=== PATIENT | male | born 1985 | race Caucasian/White ===

== ENCOUNTER 2018-07-23 13:34 | Observation (INO) ==
--- NOTE | 2018-07-23 14:03 | Emergency Department Note ---
Disposition Clinical Impression: Esophageal pain Abdominal pain Qualifiers: Abdominal location: unspecified location Qualified Code(s): R10.9 - Unspecified abdominal pain Nausea and vomiting Qualifiers: Vomiting type: unspecified Vomiting Intractability: intractable Qualified Code( s): R11.2 - Nausea with vomiting, unspecified Disposition: Admitted As Inpatient Condition: Fair [facility]: [facility]Primary Care Provider[facility] - Forms: ED Satisfaction Letter, Work/School Release Time of Disposition: 17:32 Abdominal Pain HPI - General Chief Complaint: ED Abdominal Pain Stated Complaint: abd pain,vomiting Time Seen by Provider: 07/23/18 13:41 Source: patient Mode of arrival: ambulatory Limitations: no limitations Nursing Notes Reviewed: Yes Vital Signs Reviewed: Yes - History of Present Illness HPI Narrative: Patient is a 32-year-old male with past medical history of chronic abdominal pain since 2006, chronic nausea and vomiting. He is currently being followed by GI specialist Dr. Bernstein. He does have a history of varices, acid reflux, takes Phenergan at home and GERD medication. He had a manometer place in his esophagus yesterday by Dr. Bernstein. He stated that after that procedure, he had some mild discomfort but states that it was similar to previous endoscopies discomfort. However, throughout the day, he had worsening pain. He now has pain when he swallows, constant pain in his chest and epigastric region. He states that his epigastric pain is worse than his usual baseline. He also admits to an episode of bloody emesis. Denies any other fevers, shortness breath, dysuria, hematuria, rectal bleeding. He was seen yesterday in the ER for the same issue. He is given Dilaudid, Phenergan and told to follow-up with Dr. Bernstein. He states that he called the office today and was referred here to the ER for further evaluation. Pain Scale: 3 - Related Data Home Medications Medication Instructions Recorded Confirmed LORazepam [Ativan] 1 mg PO TID PRN 11/19/17 07/23/18 Promethazine [Phenergan] 25 mg PO Q6HR PRN 11/19/17 07/23/18 Zaleplon [Sonata] 10 mg PO HS 11/19/17 07/23/18 Pantoprazole Sodium [Protonix] 40 mg PO BID 07/23/18 07/23/18 Prazosin HCl [Minipress] 2 mg PO HS 07/23/18 07/23/18 Allergies Allergy/AdvReac Type Severity Reaction Status Date / Time ketorolac [From Toradol] Allergy Rash Verified 07/23/18 14:15 Methadone Allergy See Verified 11/19/17 10:58 Comments morphine Allergy See Verified 11/19/17 10:58 Comments ondansetron Allergy Migraine Verified 11/19/17 10:58 [From Zofran (as hydrochloride)] tramadol Allergy See Verified 11/19/17 10:58 Comments NSAIDS (Non-Steroidal AdvReac Nausea Verified 07/23/18 14:15 Anti-Inflamma propofol AdvReac Difficulty Verified 07/23/18 14:15 Breathing All systems ED: reviewed and negative except as stated. Constitutional: Denies: fever Cardiovascular: Reports: chest pain (esophageal pain) Respiratory: Denies: dyspnea Gastrointestinal: Reports: abdominal pain, nausea, vomiting, hematemesis. Denies: diarrhea, constipation, melena, hematochezia Neurological: Denies: headache, weakness, numbness Abdominal Pain PMH - Past Medical History Medical history: Reports: GERD Psychiatric history: Reports: anxiety, PTSD - Social History Smoking status: Current every day smoker Alcohol use: Reports: none Drug use: Reports: none Physical Exam - General Limitations: no limitations General appearance: alert, in no apparent distress - Head Head exam: atraumatic, normocephalic, normal inspection - Eye Eye exam: Present: normal appearance, PERRL, EOMI - ENT ENT exam: normal exam, normal oropharynx, mucous membranes moist - Neck Neck exam: Present: normal inspection, full ROM, trachea midline - Chest Chest inspection: Present: normal inspection, symmetric chest wall rise. Absent : tenderness, rash - Respiratory Respiratory exam: Present: normal lung sounds bilaterally - Cardiovascular Cardiovascular exam: Present: regular rate, normal rhythm, normal heart sounds - Abdominal Exam Abdominal exam: Present: soft, tenderness (epigastric - moderate). Absent: distention, guarding, rebound, rigidity, Harris's sign, tenderness at McBurney' s Point - Extremities Exam Extremities exam: Present: normal inspection, full ROM. Absent: tenderness, pedal edema - Neurological Exam Neurological exam: Present: alert, oriented X3 - Psychiatric Psychiatric exam: Present: normal affect, normal mood - Skin Skin exam: Present: warm, dry, intact, normal color Course Course Narrative: Patient mildly hypertensive. Otherwise, the rest of vitals within normal limits. Physical exam shows epigastric discomfort, moderate. Otherwise negative Harris's and negative McBurney's. He also has subjective pain under his lower sternum that he describes as "esophageal pain, aching. "Due to complaint of hematemesis with history of varices, we will obtain CBC. We will likely have to perform CTA of the chest, abdomen and pelvis. We will check BMP for creatinine. Will talk with Dr. Bernstein to discuss imaging before ordering and to get any further recs. 14:59 spoke with GI specialist, he recommended that we do CT of the chest, give GI cocktail. If no concerning findings, he recommends that the patient follows up with the office on Thursday. No other intervention or test recommended at this time. CBC and BMP pending. He did not feel that CT of abdomen and pelvis was necessary at this time due to the chronicity of the pain and current concern for esophageal injury. 17:25 chest CTA negative for any esophageal injury. There was some calcifications that are chronic for the patient. Patient was reassessed. He is still having significant pain. He requested that his manometer be removed by GI specialist. I talked with GI specialist Dr. Bernstein, discuss imaging and continued pain. He stated that risk for high due to the patient having varices , risk outweigh benefits at this time for removal. He stated that the device will naturally follow off into the GI tract within the next 1-2 days. Patient was not comfortable with this plan. He had some relief with the GI cocktail that did not want to go home with any this was lidocaine. I discussed with GI specialist that patient may need to be admitted for intractable pain if the device was not going to be removed. Patient has requested admission at this time. Chest CT 07/23/18 14:57 IMPRESSION: 1. No acute abnormalities seen in the chest 2. The esophagus appears to be intact 3. Ground-glass infiltrates seen in the lower lobes. These could be related to an atypical pneumonia. These also may be related to a previous infectious or inflammatory process. D/ / Mahad Goldberg MD / Mahad Goldberg MD Interpreting Provider: Mahad Goldberg MD Vital Signs Temperature 98.2 F 07/23/18 13:36 Pulse Rate 90 07/23/18 13:36 Respiratory Rate 18 07/23/18 13:36 Blood Pressure 142/81 07/23/18 13:36 O2 Sat by Pulse Oximetry 98 07/23/18 13:36 Temperature 98.2 F 07/23/18 14:10 Pulse Rate 90 07/23/18 14:10 Respiratory Rate 18 07/23/18 14:10 Blood Pressure 142/81 07/23/18 14:10 O2 Sat by Pulse Oximetry 98 07/23/18 14:10 Oxygen Delivery Oxygen Delivery Room Air Abdominal Pain - MDM Narrative Medical decision making narrative: Patient mildly hypertensive. Otherwise, the rest of vitals within normal limits. Physical exam shows epigastric discomfort, moderate. Otherwise negative Harris's and negative McBurney's. He also has subjective pain under his lower sternum that he describes as "esophageal pain, aching. "Due to complaint of hematemesis with history of varices, we will obtain CBC. We will likely have to perform CTA of the chest, abdomen and pelvis. We will check BMP for creatinine. Will talk with Dr. Bernstein to discuss imaging before ordering and to get any further recs. 14:59 spoke with GI specialist, he recommended that we do CT of the chest, give GI cocktail. If no concerning findings, he recommends that the patient follows up with the office on Thursday. No other intervention or test recommended at this time. CBC and BMP pending. He did not feel that CT of abdomen and pelvis was necessary at this time due to the chronicity of the pain and current concern for esophageal injury. 17:25 chest CTA negative for any esophageal injury. There was some calcifications that are chronic for the patient. Patient was reassessed. He is still having significant pain. He requested that his manometer be removed by GI specialist. I talked with GI specialist Dr. Bernstein, discuss imaging and continued pain. He stated that risk for high due to the patient having varices , risk outweigh benefits at this time for removal. He stated that the device will naturally follow off into the GI tract within the next 1-2 days. Patient was not comfortable with this plan. He had some relief with the GI cocktail that did not want to go home with any this was lidocaine. I discussed with GI specialist that patient may need to be admitted for intractable pain if the device was not going to be removed. Patient has requested admission at this time. - Medical Records Medical records reviewed: Yes I reviewed the patient's medical records. - Lab Data Lab results reviewed: Yes I reviewed the patient's lab results. Result diagrams: 07/23/18 14:20 07/23/18 14:20 Lab Results 07/23/18 07/23/18 07/23/18 Range/Units 14:20 14:20 14:30 WBC 10.9 (4.3-11.1) K/mcL RBC 5.12 (4.19-5.50) M/mcL Hgb 15.5 (12.9-16.9) g/dL Hct 45.1 (37.5-50.1) % MCV 88.1 (83.0-100.0) fL MCH 30.3 (28.0-33.3) pg MCHC 34.4 (31.6-35.5) g/dL RDW 12.3 (11.5-14.5) % Plt Count 250 (140-400) K/mcL MPV 9.8 (9.4-12.4) fL Immature Gran % 0.6 (0-4) % Seg Neutrophils % 69.8 % Lymphocytes % 21.2 % Monocytes % 7.3 % Eosinophils % 0.6 % Basophils % 0.5 % Neutrophils # 7.6 (1.6-8.9) K/mcL Lymphocytes # 2.3 (0.6-4.6) K/mcL Monocytes # 0.8 (0.0-1.3) K/mcL Eosinophils # 0.1 (0.0-0.6) K/mcL Basophils # 0.1 (0.0-0.2) K/mcL Sodium 139 (136-145) mEq/L Potassium 3.9 (3.5-5.1) mEq/L Chloride 105 (98-107) mEq/L Carbon Dioxide 28 (23-29) mEq/L BUN 12 (6-20) mg/dL Creatinine 0.79 (0.70-1.30) mg/dL Est GFR ( Amer) > 60 (> 60) Est GFR (Non-Af Amer) > 60 (> 60) BUN/Creatinine Ratio 15 (6-26) Glucose 101 (70-105) mg/dL Calculated Osmolality 288 (280-300) Calcium 9.5 (8.6-10.3) mg/dL Urine Color (Yellow) Urine Clarity (Clear) Urine pH (5.0-8.0) pH Units Ur Specific Rochelle (1.010-1.025) Urine Protein (Neg-Trace) mg/dL Urine Glucose (UA) (Normal) mg/dL Urine Ketones (Negative) mg/dL Urine Blood (Negative) Urine Nitrite (Negative) Urine Bilirubin (Negative) Urine Urobilinogen (Normal) mg/dL Ur Leukocyte Esterase (Negative) Ur Culture Indicated? (NO) Urine Opiates Screen Negative (Ztrenp=637) ng/mL Ur Barbiturates Screen Negative (Rehzai=738) ng/mL Ur Phencyclidine Scrn Negative (Cutoff=25) ng/mL Ur Amphetamines Screen Negative (Hkbpfd=8301) ng/mL U Benzodiazepines Scrn Positive H (Cyblwr=478) ng/mL Urine Cocaine Screen Negative (Cutoff= 300) ng/mL U Marijuana (THC) Screen Negative (Cutoff = 50) ng/mL Ur Drug Screen Interp See Below 07/23/18 Range/Units 14:30 WBC (4.3-11.1) K/mcL RBC (4.19-5.50) M/mcL Hgb (12.9-16.9) g/dL Hct (37.5-50.1) % MCV (83.0-100.0) fL MCH (28.0-33.3) pg MCHC (31.6-35.5) g/dL RDW (11.5-14.5) % Plt Count (140-400) K/mcL MPV (9.4-12.4) fL Immature Gran % (0-4) % Seg Neutrophils % % Lymphocytes % % Monocytes % % Eosinophils % % Basophils % % Neutrophils # (1.6-8.9) K/mcL Lymphocytes # (0.6-4.6) K/mcL Monocytes # (0.0-1.3) K/mcL Eosinophils # (0.0-0.6) K/mcL Basophils # (0.0-0.2) K/mcL Sodium (136-145) mEq/L Potassium (3.5-5.1) mEq/L Chloride (98-107) mEq/L Carbon Dioxide (23-29) mEq/L BUN (6-20) mg/dL Creatinine (0.70-1.30) mg/dL Est GFR ( Amer) (> 60) Est GFR (Non-Af Amer) (> 60) BUN/Creatinine Ratio (6-26) Glucose (70-105) mg/dL Calculated Osmolality (280-300) Calcium (8.6-10.3) mg/dL Urine Color Yellow (Yellow) Urine Clarity Clear (Clear) Urine pH 8.0 (5.0-8.0) pH Units Ur Specific Roc[place]le 1.017 (1.010-1.025) Urine Protein Negative (Neg-Trace) mg/dL Urine Glucose (UA) Normal (Normal) mg/dL Urine Ketones Negative (Negative) mg/dL Urine Blood Negative (Negative) Urine Nitrite Negative (Negative) Urine Bilirubin Negative (Negative) Urine Urobilinogen Normal (Normal) mg/dL Ur Leukocyte Esterase Negative (Negative) Ur Culture Indicated? NO (NO) Urine Opiates Screen (Vjyztz=114) ng/mL Ur Barbiturates Screen (Pkhvkw=636) ng/mL Ur Phencyclidine Scrn (Cutoff=25) ng/mL Ur Amphetamines Screen (Wddiws=6175) ng/mL U Benzodiazepines Scrn (Bbhdru=485) ng/mL Urine Cocaine Screen (Cutoff= 300) ng/mL U Marijuana (THC) Screen (Cutoff = 50) ng/mL Ur Drug Screen Interp - Radiology Data Radiology results reviewed: Yes I reviewed the patient's radiology results. Chest CT 07/23/18 14:57 IMPRESSION: 1. No acute abnormalities seen in the chest 2. The esophagus appears to be intact 3. Ground-glass infiltrates seen in the lower lobes. These could be related to an atypical pneumonia. These also may be related to a previous infectious or inflammatory process. D/ / Mahad Goldberg MD / Mahad Goldberg MD Interpreting Provider: Mahad Goldberg MD S[facility]R. - S.B[facility] Situation: Demographics, MOA Background: Presenting Complaint, Relevant PMH, Meds, & Allergies Assessment: Vital Signs, Course and respsone to treatment, Exam Concerns, Patient/Family Expectation, Pertinant Lab Results Recommendation: Barrier(s) to disposition, Recommendation based on pending studies, treatments, or consults Noemi Report Given to: Dr. Shayna Franklin Repor Time: 17:32 Attestation Statement - Attestation Attestation: This documentation is done with the assistance of Dragon dictation. Despite efforts made to ensure accuracy, there may be inaccuracies in glass technician/installer or spelling and typographical errors. I examined this patient and my medical decision-making was reviewed with the Resident Physician. I agree with the documented findings, disposition and treatment plan as described except to the extent set forth below. Patient seen and evaluated by Dr. Spivey and myself I agree with his evaluation treatment plan , I supervised the care of the patient's stay. Patient was seen last evening for abdominal pain and nausea. He had a probable device placed recently by GI here. Major his pH. He still having discomfort. They called the GI office today 25 and be seen. Nonsurgical abdomen here. Receiving make him feel better from a page GI and the consider imaging.
[2018-07-23] MEDS ORDERED: *HR* FentaNYL (PF) 100 MCG/2 ML VIAL IVP ONE ×2 (14:16→17:32)
[2018-07-23] MEDS ORDERED: *HR* Promethazine 25 MG/ML VIAL IVP ONE (14:16)
[2018-07-23 14:36] LABS: Basophils # 0.1 K/mcL (0.0-0.2); Basophils % 0.5 %; Eosinophils # 0.1 K/mcL (0.0-0.6); Eosinophils % 0.6 %; Hematocrit 45.1 % (37.5-50.1); Hemoglobin 15.5 g/dL (12.9-16.9); Immature Granulocytes % 0.6 % (0-4); Lymphocytes # 2.3 K/mcL (0.6-4.6); Lymphocytes % 21.2 %; Mean Corpuscular HGB Conc 34.4 g/dL (31.6-35.5); Mean Corpuscular Hemoglobin 30.3 pg (28.0-33.3); Mean Corpuscular Volume 88.1 fL (83.0-100.0); Mean Platelet Volume 9.8 fL (9.4-12.4); Monocytes # 0.8 K/mcL (0.0-1.3); Monocytes % 7.3 %; Neutrophils # 7.6 K/mcL (1.6-8.9); Platelet Count 250 K/mcL (140-400); Red Blood Count 5.12 M/mcL (4.19-5.50); Red Cell Distribution Width 12.3 % (11.5-14.5); Segmented Neutrophils % 69.8 %
[2018-07-23 14:54] LABS: Amphetamine Screen,Urine Negative ng/mL (Cutoff=1000); Barbiturate Screen,Urine Negative ng/mL (Cutoff=200); Benzodiazepines Screen,Urine Positive ng/mL (Cutoff=200); Cannabinoid Screen,Urine Negative ng/mL (Cutoff = 50); Cocaine Screen,Urine Negative ng/mL (Cutoff= 300); Opiate Screen,Urine Negative ng/mL (Cutoff=300); Phencyclidine Screen,Urine Negative ng/mL (Cutoff=25)
[2018-07-23] MEDS ORDERED: GI Cocktail 40 ML EACH PO ONE ×2 (14:54→21:00)
[2018-07-23 14:55] LABS: BUN/Creatinine Ratio 15 (6-26); Blood Urea Nitrogen 12 mg/dL (6-20); Calcium 9.5 mg/dL (8.6-10.3); Carbon Dioxide 28 mEq/L (23-29); Chloride 105 mEq/L (98-107); Glucose 101 mg/dL (70-105); Osmolality,Calculated 288 (280-300); Potassium 3.9 mEq/L (3.5-5.1); Sodium 139 mEq/L (136-145); eGFR For Non-African Americans > 60 (> 60)
[2018-07-23 15:08] LABS: Bilirubin,Urine Negative (Negative); Blood,Urine Negative (Negative); Clarity,Urine Clear (Clear); Color,Urine Yellow (Yellow); Glucose,Urine (UA) Normal (Normal); Ketones,Urine Negative (Negative); Leukocyte Esterase,Urine Negative (Negative); Nitrite,Urine Negative (Negative); Protein,Urine Negative (Neg-Trace); Specific Gravity,Urine 1.017 (1.010-1.025); Urobilinogen,Urine Normal (Normal)
[2018-07-23] MEDS ORDERED: Isovue-370 500 ML INFUS..BTL PO ONE (16:14)
[2018-07-23] MEDS ORDERED: Naloxone 0.4 MG/ML INJ IVP PRN ×2 (17:53)
[2018-07-23] MEDS ORDERED: Acetaminophen 325 MG TABLET PO PRN (17:53)
[2018-07-23] MEDS ORDERED: *HR* Promethazine 25 MG/ML VIAL IVP PRN (17:53)
[2018-07-23 18:21] LABS: Lipase 8 Units/L (11-82)
--- NOTE | 2018-07-23 18:29 | Internal Med History&Physical ---
<Laura Heaton - Last Filed: 07/23/18 18:26> Date of Encounter: 07/23/18 Time of Encounter: 18:26 Internal Medicine - H&P: HPI Chief complaint: Vomiting with epigastric pain Admitted From: Home Plans for Post Hospital Care: Home History of present illness: Mr. Alexandra is a 32 year old male with past medical history of PTSD, esophageal varices, bleeding ulcer, and right leg neuropathy and traumatic brain injury. He presented to the ED complaining of acute vomiting and abdominal pain. He is unsure why he has esophageal varices and stated he does not drink and his last drink was about 6 months ago. He is a current smoker and smoker and spokes 1 pack of cigarette per day for the past 15 years. He does have family history of colon cancer in his mom with crohn disease onset in her late 40s. He stated he started having abdominal pain yesterday evening and it was associated with vomiting. He had a monometer pH reader placed yesterday and noted to have localized epigastric pain radiating to the abdomen last night. He presented to the ED yesterday with similar complaints but stated after received something for pain he felt better. This evening he is presenting with subjective history of emesis 6 times in the past 24 hours which is described as bilious with some blood but he is unable to quantify how much blood. It is described as a sharp pain 10/10 in his epigastric region. Nothing makes the abdominal pain or the emesis better. Since his presentation in the ED he has had no episodes of emesis. His vitals have remained stable, blood pressure 142/81 to 123/83. His labs are also stable , with potassium of 3.9 and sodium at 139. His hemoglobin is 15.5 and white count is within normal limits at 10.9. He had a CT of the chest in the ED to rule out any esophageal tear and there was no evidence of that. He appears very comfortable in bed. He denies fever, chills, cough, shortness of breath or chest pain. He is asking for more phenergen and more pain medication which seems inappropriate given he has received them recently before my exam. Upon physical exam he appears comfortable and exam, no cysnosis or lesions noted on his abdomen, mucosa was moist was only pertinent for midepigastric tenderness. Abdomen was soft, with no guarding or rigidity. Past Med Surg Social Fam HX - Past Medical History Medical history: GERD Additional medical history: bleeding ulcers, gastric polyps, ptsd, sciatic nerve paralysis Psychiatric history: anxiety, PTSD - Past Surgical History Surgical History: appendectomy, cholecystectomy Additional surgical history: neurostimulator implant - EGD, tejada procdure - Social History Smoking Status: Current every day smoker Smokeless Tobacco Status: No Alcohol use: none Drug use: none - Family History Maternal Adopted: No Living Status: Unknown Hx Family GI Disorders: Yes (History of crohn and colon cancer per patient) Internal Medicine - H&P: Meds LORazepam [Ativan] 1 mg PO TID PRN 11/19/17 [History] Promethazine [Phenergan] 25 mg PO Q6HR PRN 11/19/17 [History] Zaleplon [Sonata] 10 mg PO HS 11/19/17 [History] Pantoprazole Sodium [Protonix] 40 mg PO BID 07/23/18 [History] Prazosin HCl [Minipress] 2 mg PO HS 07/23/18 [History] 3 Allergy/AdvReac Type Severity Reaction Status Date / Time ketorolac [From Toradol] Allergy Rash Verified 07/23/18 14:15 Methadone Allergy See Verified 11/19/17 10:58 Comments morphine Allergy See Verified 11/19/17 10:58 Comments ondansetron Allergy Migraine Verified 11/19/17 10:58 [From Zofran (as hydrochloride)] tramadol Allergy See Verified 11/19/17 10:58 Comments NSAIDS (Non-Steroidal AdvReac Nausea Verified 07/23/18 14:15 Anti-Inflamma propofol AdvReac Difficulty Verified 07/23/18 14:15 Breathing All Systems PM: A 10-system review of systems was performed and is negative for pertinent findings except as documented above in the HPI. - Constitutional Constitutional: no chills, no fever(s), no falls, no weight loss - EENT Eyes: no blurry vision, no loss of vision, no pain Nose, mouth and throat: no dysphagia, no hoarseness - Cardiovascular Cardiovascular ROS IM: no chest pain, no dyspnea, no edema, no palpitations - Respiratory Respiratory: no cough, no dyspnea, no wheezing - Gastrointestinal Gastrointestinal: hematemesis (subjective, not visualized in the ED), nausea, vomiting (subjective), no constipation, no diarrhea, no hematochezia - Genitourinary Genitourinary ROS male: no dysuria - Musculoskeletal Musculoskeletal ROS IM: other (history of right leg neuropathy ), no muscle weakness - Neurological Neurological ROS: no frequent falls, no headache(s), no tingling, no weakness - Psychiatric Psychiatric: anxiety, depression, other (PTSD) - Constitutional Vitals: Temp Pulse Resp BP Pulse Ox 98.2 F 77 14 123/83 97 07/23/18 14:10 07/23/18 17:43 07/23/18 17:43 07/23/18 17:43 07/23/18 17:43 General appearance: Present: A&O X 3, no acute distress Exam: Constitutional: Alert, in no acute distress, comfortable HEENT: Normocephalic, atraumatic, moist mucus membrane Heart: Normal, regular rate and rhythm, no murmurs Lungs: lungs clear and equal bilaterally Abdomen: Soft, non distended, tender in epigastric region, no rigidity, no rebound tenderness Extremities: No edema, no clubbing; Skin: Skin warm and dry, no lesions, no rashes, no jaundice Psych: thought content congruent, appropriate affect Neurological Alert and oriented x 3 - Head Head exam: Present: atraumatic - Eye Eye exam: Present: conjunctival injection. Absent: sclera anicteric - Neck Neck exam general surgery: Present: full ROM, trachea midline - Respiratory Respiratory exam: Present: CTAB. Absent: rhonchi, stridor, wheezes - Cardiovascular Cardiovascular exam: Present: RRR, +S1, +S2. Absent: clicks, gallop - GI/Abdominal GI/Abdominal exam: Present: diminished bowel sounds, soft, tenderness ( epigastric region and right upper abdomen). Absent: distended, firm, guarding, rigid - Extremities Exam Extremities exam: Present: warm. Absent: calf tenderness, pedal edema - Psychiatric Psychiatric exam: Present: normal affect, normal mood - Skin Skin exam: Present: dry, intact, warm. Absent: rash - Other Additional findings: appear to have some drug seeking behavior as he is asking for specific pain medications and phenergen Internal Med - H&P Results - Labs CBC & Chem 7: 07/23/18 14:20 07/23/18 14:20 Labs: Short CBC 07/23/18 Range/Units 14:20 WBC 10.9 (4.3-11.1) K/mcL Hgb 15.5 (12.9-16.9) g/dL Hct 45.1 (37.5-50.1) % Plt Count 250 (140-400) K/mcL Neutrophils # 7.6 (1.6-8.9) K/mcL BMP 07/23/18 14:20 Sodium 139 Potassium 3.9 Chloride 105 Carbon Dioxide 28 BUN 12 Creatinine 0.79 Glucose 101 Calcium 9.5 Urine 07/23/18 Range/Units 14:30 Urine Color Yellow (Yellow) Urine Clarity Clear (Clear) Urine pH 8.0 (5.0-8.0) pH Units Ur Specific [place] 1.017 (1.010-1.025) Urine Protein Negative (Neg-Trace) mg/dL Urine Glucose (UA) Normal (Normal) mg/dL - Impressions ITS Impressions Chest CT 07/23/18 14:57 IMPRESSION: 1. No acute abnormalities seen in the chest 2. The esophagus appears to be intact 3. Ground-glass infiltrates seen in the lower lobes. These could be related to an atypical pneumonia. These also may be related to a previous infectious or inflammatory process. D/ / Mahad Goldberg MD / Mahad Goldberg MD Interpreting Provider: Mahad Goldberg MD - Assessment and plan (1) Intractable nausea and vomiting Current Visit: Yes Status: Acute Assessment and plan: Patient stated he has had 6 episodes of emesis since yesterday evening. He describes them as bilious and bloody but unable to quantify the amount of blood. He did not have any emesis witnessed in the ED. Plan: NPO except meds, risk for aspiration Promethazine 25 mg Q8HR KUB pending Hepatic panel pending INR/PT pending CMP in the morning GI consulted by ED Qualifiers: Vomiting type: unspecified Qualified Code(s): R11.2 - Nausea with vomiting , unspecified (2) Epigastric abdominal pain Current Visit: Yes Status: Acute Assessment and plan: Complains of intractable abdominal pain that has been ongoing since yesterday evening. Upon physical exam he appears comfortable, abdomen is soft and non distended. He is tender in the epigastric region. Plan: Pain control with 5 mg oxycodone Q4HR PRN, avoid IV Acetaminophen PRN KUB pending Hepatic panel pending INR/PT pending NPO except meds GI consulted by ED (3) GERD (gastroesophageal reflux disease) Current Visit: Yes Status: Acute Assessment and plan: Per patient he has history of peptic ulcer disease although he had an EGD yesterday which did not visualize any peptic ulcer. He was noted to have a normal appearing stomach as well as duodonem. He may have underlying GERD as he is on home protonix and complains of epigastric pain ongoing for many years Plan: He received GI cocktail in the ED and scheduled for another dose this evening Protonix 40 mg PO Hepatic panel pending INR/PT pending NPO except meds GI consulted by ED Qualifiers: Esophagitis presence: esophagitis presence not specified Qualified Code(s) : K21.9 - Gastro-esophageal reflux disease without esophagitis (4) Esophageal varices Current Visit: Yes Status: Acute Assessment and plan: Grade 1 espophageal varice. He underwent an EGD by Dr. Bernstein yesterday (07/22/18) for a pH manometry to be placed and was noted to have a very small grade 1 varice in the lower third of his esophagus. Plan: Avoid NSAIDS Pending hepatic panel Pending PT/INR Continue to monitor in case he has any evidence of hematemesis Qualifiers: Esophageal varices type: unspecified type Esophageal varices bleeding: without bleeding Qualified Code(s): I85.00 - Esophageal varices without bleeding (5) Insomnia Current Visit: Yes Status: Chronic Assessment and plan: History of insomnia. Plan: Continue home medication Qualifiers: Insomnia type: unspecified Qualified Code(s): G47.00 - Insomnia, unspecified (6) DVT prophylaxis Current Visit: Yes Status: Acute Assessment and plan: SCDs given he is complaining of hematemesis (7) Anxiety Current Visit: Yes Status: Chronic Assessment and plan: History of anxiety and on home ativan Plan: Continue home ativan - Time Spent With Patient Total time spent is greater than 50% in coordination of care (as documented) at patient's floor/unit and/or counseling patient: 25 - 35 minutes <Alana Lezama - Last Filed: 07/23/18 21:53> Date of Encounter: 07/23/18 Internal Medicine - H&P: HPI History of present illness: Mr. Alexandra is a 32 year old male All Systems PM: A 10-system review of systems was performed and is negative for pertinent findings except as documented above in the HPI. - Constitutional Vitals: Temp Pulse Resp BP Pulse Ox 98.2 F 77 16 127/76 97 07/23/18 14:10 07/23/18 17:43 07/23/18 20:23 07/23/18 20:23 07/23/18 17:43 Internal Med - H&P Results - Labs CBC & Chem 7: 07/23/18 14:20 07/23/18 14:20 - Assessment and plan (1) Intractable nausea and vomiting Current Visit: Yes Status: Acute Qualifiers: Vomiting type: unspecified Qualified Code(s): R11.2 - Nausea with vomiting , unspecified (2) Epigastric abdominal pain Current Visit: Yes Status: Acute (3) GERD (gastroesophageal reflux disease) Current Visit: Yes Status: Acute Qualifiers: Esophagitis presence: esophagitis presence not specified Qualified Code(s) : K21.9 - Gastro-esophageal reflux disease without esophagitis (4) Esophageal varices Current Visit: Yes Status: Acute Qualifiers: Esophageal varices type: unspecified type Esophageal varices bleeding: without bleeding Qualified Code(s): I85.00 - Esophageal varices without bleeding (5) DVT prophylaxis Current Visit: Yes Status: Acute (6) Insomnia Current Visit: Yes Status: Chronic Qualifiers: Insomnia type: unspecified Qualified Code(s): G47.00 - Insomnia, unspecified (7) Anxiety Current Visit: Yes Status: Chronic - Time Spent With Patient Total time spent is greater than 50% in coordination of care (as documented) at patient's floor/unit and/or counseling patient: - Attending Attestation I examined this patient and my medical decision-making was reviewed with the Resident Physician Dr Heaton. I agree with the documented findings, disposition and treatment plan as described except to the extent set forth below. Mr Alexandra came to the ED with intractable epigastric pain and worsened chronic nausea and emesis since placement of a ph moniot rvia egd by Dr Bernstein this week. ED spoke with Dr Bernstein and recommendation for gi cocktail given. Pt cont to note intractable pain though routinely comofrtable appearing in ED. He also noted cont nausea but had no witnessed emesis in ED. Dr Bernstein was again contacted per ed report. He is not a candidate for monitor to be removed given the risk of doing so with esophageal varices outweights the benefit. The capsule should pass in upcoming days through his ytem. CT scan in ED shoewd no perforation of esophagus. Labs were all unremarkable. Awake, alert and comofrtable appearin gin ED. Notes consistent history to resident documentation. Denies chest pain, sob, fevers, chills. Denies emesis in ED. Pain epigastric, non radiating. Normal bms in recent days, no diarrhea, melena, hematochezia. gen- alert, awake, nad eyes- no conjunctival pallor ent- mmm, clear oropharynx cv- rrr, no m/r/g lungs- ctabl on room air normal resp effort abd- soft, non distended, non rigid, epigastrium tender to palp, no guarding, + bs skin- no rash, pallor or jaundice intractable nausea/emesis has been chronic with egd placed ph monitor by Dr Bernstein this week and pt self reported worsened synptms -no emesis in ED, pt noted perhaps streaks of blood in emesis,bile colored, vague in his history giving -given hx EV--IV anti emetic phenergan (allergic to zofran) to reduce wretching -npo , ivfs -all labs are normal, no repeltions needed epigastric pain since placement above -ct chest without any acute abnormlaity -check kub and lipase, cmp -prn pain control, admits to opioid tolerance -gi cocktail, PPI Self reported possible blood in emesis with grade I small EV on egd -monitor hgb, currently normal, no vs instability, check coags, prn anti emetic , scds for vte ppx
[2018-07-23] MEDS ORDERED: *HR* LORazepam 1 MG TABLET PO PRN (18:57)
[2018-07-23 19:19] LABS: Prothrombin Time 11.6 Seconds (9.4-12.1)
[2018-07-23 19:21] LABS: Alanine Aminotransferase 37 Units/L (7-52); Albumin 4.8 g/dL (3.5-5.7); Albumin/Globulin Ratio 1.9 (1.1-2.2); Alkaline Phosphatase 76 Units/L (34-104); Aspartate Amino Transferase 20 Units/L (13-39); Bilirubin,Direct 0.1 mg/dL (0.0-0.2); Bilirubin,Indirect 0.6 mg/dL (0.0-1.2); Bilirubin,Total 0.7 mg/dL (0.3-1.0); Globulin 2.5 g/dL (2.4-3.5); Total Protein 7.3 g/dL (6.4-8.9)
[2018-07-23] MEDS: OXYCODONE Oral CONC 10 MG/0.5 ML ORAL.SYG SL PRN (21:13)
[2018-07-23] MEDS: 0.9 % Sodium Chloride 1,000 ML IVC SCH (21:38)
[2018-07-23] MEDS: *HR* Promethazine 25 MG/ML VIAL IVP PRN (23:02)
[2018-07-24] MEDS: OXYCODONE Oral CONC 10 MG/0.5 ML ORAL.SYG SL PRN ×4 (01:12→21:09)
[2018-07-24 05:14] LABS: Basophils # 0.1 K/mcL (0.0-0.2); Basophils % 0.5 %; Eosinophils # 0.2 K/mcL (0.0-0.6); Eosinophils % 2.1 %; Hematocrit 44.1 % (37.5-50.1); Hemoglobin 14.7 g/dL (12.9-16.9); Immature Granulocytes % 0.6 % (0-4); Mean Corpuscular HGB Conc 33.3 g/dL (31.6-35.5); Mean Corpuscular Hemoglobin 29.7 pg (28.0-33.3); Mean Corpuscular Volume 89.1 fL (83.0-100.0); Mean Platelet Volume 10.5 fL (9.4-12.4); Monocytes % 9.5 %; Neutrophils # 4.9 K/mcL (1.6-8.9); Platelet Count 240 K/mcL (140-400); Red Blood Count 4.95 M/mcL (4.19-5.50); Red Cell Distribution Width 12.5 % (11.5-14.5); Segmented Neutrophils % 48.3 %
[2018-07-24 05:36] LABS: Alanine Aminotransferase 36 Units/L (7-52); Albumin 4.4 g/dL (3.5-5.7); Albumin/Globulin Ratio 1.9 (1.1-2.2); Alkaline Phosphatase 71 Units/L (34-104); Aspartate Amino Transferase 20 Units/L (13-39); BUN/Creatinine Ratio 15 (6-26); Bilirubin,Total 0.8 mg/dL (0.3-1.0); Blood Urea Nitrogen 13 mg/dL (6-20); Calcium 9.2 mg/dL (8.6-10.3); Carbon Dioxide 26 mEq/L (23-29); Chloride 105 mEq/L (98-107); Globulin 2.3 g/dL (2.4-3.5); Glucose 89 mg/dL (70-105); Magnesium 2.2 mg/dL (1.6-2.6); Osmolality,Calculated 288 (280-300); Phosphorous 4.9 mg/dL (2.7-4.5); Potassium 3.9 mEq/L (3.5-5.1); Sodium 139 mEq/L (136-145); Total Protein 6.7 g/dL (6.4-8.9); eGFR For Non-African Americans > 60 (> 60)
[2018-07-24 05:45] LABS: Prothrombin Time 11.6 Seconds (9.4-12.1)
[2018-07-24] MEDS: *HR* Promethazine 25 MG/ML VIAL IVP PRN ×2 (09:12→18:59)
[2018-07-24] MEDS: 0.9 % Sodium Chloride 1,000 ML IVC SCH (09:21)
--- NOTE | 2018-07-24 11:44 | Internal Med Progress Note ---
<Alana Lezama - Last Filed: 07/24/18 13:06> Hospitalist Progress Note - Encounter Date of Encounter: 07/24/18 - Exam Vitals: Temp Pulse Resp BP Pulse Ox 98.3 F 71 16 102/61 97 07/24/18 12:52 07/24/18 12:52 07/24/18 12:52 07/24/18 12:52 07/24/18 12:52 - Assessment and Plan (1) Intractable nausea and vomiting Current Visit: Yes Status: Acute (2) Epigastric abdominal pain Current Visit: Yes Status: Acute (3) GERD (gastroesophageal reflux disease) Current Visit: Yes Status: Acute (4) Esophageal varices Current Visit: Yes Status: Acute (5) DVT prophylaxis Current Visit: Yes Status: Acute (6) Insomnia Current Visit: Yes Status: Chronic (7) Anxiety Current Visit: Yes Status: Chronic - Time Spent with Patient Total time spent is greater than 50% in coordination of care (as documented) at patient's floor/unit and/or counseling patient: Internal Medicine: Result - Labs CBC & Chem 7: 07/24/18 04:13 07/24/18 04:13 Labs: Short CBC 07/24/18 Range/Units 04:13 WBC 10.2 (4.3-11.1) K/mcL Hgb 14.7 (12.9-16.9) g/dL Hct 44.1 (37.5-50.1) % Plt Count 240 (140-400) K/mcL Neutrophils # 4.9 (1.6-8.9) K/mcL BMP 07/24/18 04:13 Sodium 139 Potassium 3.9 Chloride 105 Carbon Dioxide 26 BUN 13 Creatinine 0.86 Glucose 89 Calcium 9.2 Liver Function 07/24/18 Range/Units 04:13 Total Bilirubin 0.8 (0.3-1.0) mg/dL AST 20 (13-39) Units/L ALT 36 (7-52) Units/L Alkaline Phosphatase 71 (34-104) Units/L Albumin 4.4 (3.5-5.7) g/dL - ABG Interpretation ABG results: PT/INR, D-dimer PT 11.6 Seconds (9.4-12.1) 07/24/18 04:13 Consult Discharge Plan - Plan [facility]errals: [facility]Primary Care Provider[facility] - - Attending Attestation I examined this patient and my medical decision-making was reviewed with the Resident Physician Dr Bonner I agree with the documented findings, disposition and treatment plan as described except to the extent set forth below /addl details below Mr Alexandra came to the ED with intractable epigastric pain and worsened chronic nausea and emesis since placement of a ph moniot rvia egd by Dr Bernstein 07/22 with negative work up in ED and Dr Bernstein contacted by ED. Awake, alert and family at bedside. No emesis, but dry heaving and nausea. Continued epigastric pain, unchanged, no other abd pain, chest pain, diarrhea or constipation. He is agreeable to attempting liquid diet today with phenergan pre meal. gen- alert, awake,appears stated age, comfortable appearing eyes- pupils equal round , no conjunctival pallor cv- reg rate and rhythm, normal s1,s2, no murmurs appreciated lungs- ctabl, no wheezing, rhonchi or crackles, normal resp effort on room air abd- soft,+ epigastric pain, no guarding, no rigidity, non distended, + bs neuro- AAOx3 intractable nausea/emesis has been chronic with egd placed ph monitor by Dr Bernstein 07/22 and pt self reported worsened symptoms Cont nausea, no emesis since admit Cont intractable abd pain, tolerable with current pain regimen -ED contacted Dr Bernstein and too high risk to remove ph monitor given grade I EV, should pass through system in next couple days -no emesis in ED, pt noted perhaps streaks of blood in emesis,bile colored, vague in his history giving -given hx EV--IV anti emetic phenergan (allergic to zofran) to reduce wretching -cont ivfs, advance diet to clear liquids with pre meal phenergan IV -all labs are normal,no repletions needed -gi consulted, pending eval -needs to be able to have some oral intake prior to discharge epigastric pain since placement above -ct chest without any acute abnormality -kub and lipase unremarkable -prn pain control, admits to opioid tolerance -ppi -gi consulted and pending eval Self reported possible blood in emesis with grade I small EV on egd -he has had no emesis to observe this admission, hgb normal no vs instability, wnl coags, prn anti emetic, scds for vte ppx <Adrián Bonner - Last Filed: 07/24/18 13:49> Hospitalist Progress Note - Encounter Date of Encounter: 07/24/18 Time of Encounter: 10:20 - Subjective Interval History: Patient was seen and examined at bedside this morning. He reports that his abdominal pain is midly improved but has not had further episodes of vomiting. He does report dry heaves and minimal oral intake secondary to nausea. He tells me that this is a chronic problem for him and follows closely with GI and has had gastic ulcers, gastritis, duodenitis, GERD. He has home phenergren but presented to ED as it was not helping him. His last BM was day prior to admission and normal for him. Denies symptoms of fevers, chills, chest pain, SOB , numbness, tingling. Denies alcohol use but does smoke 1 PPD. - Exam Vitals: Temp Pulse Resp BP Pulse Ox 97.9 F 69 16 115/74 97 07/24/18 07:51 07/24/18 07:51 07/24/18 07:51 07/24/18 07:51 07/24/18 09:00 Exam: Constitutional: Alert, in no acute distress, comfortable with food tray not yet touched at bedside. HEENT: Normocephalic, atraumatic, moist mucus membrane Heart: Normal, regular rate and rhythm, no murmurs Lungs: lungs clear and equal bilaterally Abdomen: Soft, non distended, tender in epigastric region, no rigidity, no rebound tenderness Extremities: No edema, no clubbing; Skin: Skin warm and dry, no lesions, no rashes, no jaundice Psych: answers questions appropriately, appears to have good insight and judgement. Non anxious. Neurological Alert and oriented x 3 - Assessment and Plan (1) Intractable nausea and vomiting Current Visit: Yes Status: Acute Assessment and Plan: - Multiple episodes of bilious vomiting following EGD procedure on 07/22 - He does have a chronic history of nausea with vomiting for which he takes home Phenergan. Acute on chronic nausea and vomiting - He is report 1 episode of hematemesis which is since resolved and he has had no further episodes of vomiting since admission - He did try to tolerate clear liquid diet this morning with some success - Etiology unclear and he has an extensive outpatient workup with previous findings of peptic ulcers, duodenitis, gastritis -Gastroenterology was consult that in the emergency room, appreciate recommendations - He does report improvement of symptoms with GI cocktail as well as Phenergan -KUB obtained on admission negative for obstruction. CTA of the chest in emergency room within normal limits with no evidence of esophageal perforation. - Lab results unremarkable including electrolytes, hepatic panel, lipase within normal limits Plan: Clear liquid diet as tolerated, advance as tolerated Promethazine 25 mg Q8HR The patient is able to tolerate by mouth intake with assistance of antiemetic medications, he may possibly discharge tomorrow with close GI follow-up. Await GI recommendations or follow-up as outpatient We will continue to trend morning labs for any signs of electrolyte abnormalities versus GI bleed (2) Hematemesis Current Visit: Yes Status: Resolved Assessment and Plan: Patient reported one episode of hematemesis following EGD as above Unable to quantify amount of blood Hemodynamically stable since presentation despite continued retching Does have a history of mild grade 1 esophageal varices of unknown etiology No further episodes of bleeding H/H stable at 14.7/44.1 --Do not suspect variceal bleeding at this time. likely a result of the procedure versus chronic gastritis Plan Management as above, will continue monitor for any further signs of bleeding (3) Epigastric abdominal pain Current Visit: Yes Status: Acute Assessment and Plan: Complains of intractable abdominal pain that has been ongoing since yesterday evening. Upon physical exam he appears comfortable, abdomen is soft and non distended. He is tender in the epigastric region. Likely secondary to chronic gastritis and GERD with recent procedure. Further management as above (4) GERD (gastroesophageal reflux disease) Current Visit: Yes Status: Acute Assessment and Plan: Per patient he has history of peptic ulcer disease although he had an EGD yesterday which did not visualize any peptic ulcer. He was noted to have a normal appearing stomach as well as duodonem. He may have underlying GERD as he is on home protonix and complains of epigastric pain ongoing for many years. Reports relief of substernal pain with GI cocktail. Plan: Omeprazole 40 mg PO daily (5) Esophageal varices Current Visit: Yes Status: Acute Assessment and Plan: He underwent an EGD by Dr. Bernstein yesterday (07/22/18) for a pH manometry to be placed and was noted to have a very small grade 1 varice in the lower third of his esophagus. - Etiology unclear. He denies ever being a heavy drinker, no family history of liver disease, no known hepatitis exposure. - Very low suspicion of variceal rupture as he has not had further episodes of hematemasis since presentation and EGD findings do not convey and advanced picture. - H/H stable as above. - Will not start octreotide at this time - Coagulation studies within normal limits Plan: Avoid NSAIDS Continue to monitor in case he has any evidence of hematemesis (6) Insomnia Current Visit: Yes Status: Chronic Assessment and Plan: History of insomnia. Plan: Continue home medication (7) Anxiety Current Visit: Yes Status: Chronic Assessment and Plan: History of anxiety with PTSD and on home ativan Appears comfortable on exam. Avoid concomitant opioid use if possible. Plan: Continue home ativan (8) DVT prophylaxis Current Visit: Yes Status: Acute Assessment and Plan: SCDs given he is complaining of hematemesis - Time Spent with Patient Total time spent is greater than 50% in coordination of care (as documented) at patient's floor/unit and/or counseling patient: Plan of Care Discussed with: family Internal Medicine: Result - Labs CBC & Chem 7: 07/24/18 04:13 07/24/18 04:13 Labs: Short CBC 07/24/18 Range/Units 04:13 WBC 10.2 (4.3-11.1) K/mcL Hgb 14.7 (12.9-16.9) g/dL Hct 44.1 (37.5-50.1) % Plt Count 240 (140-400) K/mcL Neutrophils # 4.9 (1.6-8.9) K/mcL BMP 07/24/18 04:13 Sodium 139 Potassium 3.9 Chloride 105 Carbon Dioxide 26 BUN 13 Creatinine 0.86 Glucose 89 Calcium 9.2 Liver Function 07/24/18 Range/Units 04:13 Total Bilirubin 0.8 (0.3-1.0) mg/dL AST 20 (13-39) Units/L ALT 36 (7-52) Units/L Alkaline Phosphatase 71 (34-104) Units/L Albumin 4.4 (3.5-5.7) g/dL - ABG Interpretation ABG results: PT/INR, D-dimer PT 11.6 Seconds (9.4-12.1) 07/24/18 04:13 <Alana Lezama - Last Filed: 07/24/18 13:06> (1) Intractable nausea and vomiting Qualifiers: Vomiting type: unspecified Qualified Code(s): R11.2 - Nausea with vomiting, unspecified (3) GERD (gastroesophageal reflux disease) Qualifiers: Esophagitis presence: esophagitis presence not specified Qualified Code(s): K21.9 - Gastro-esophageal reflux disease without esophagitis (4) Esophageal varices Qualifiers: Esophageal varices type: unspecified type Esophageal varices bleeding: without bleeding Qualified Code(s): I85.00 - Esophageal varices without bleeding (6) Insomnia Qualifiers: Insomnia type: unspecified Qualified Code(s): G47.00 - Insomnia, unspecified <Adrián Bonner - Last Filed: 07/24/18 13:49> (1) Intractable nausea and vomiting Qualifiers: Vomiting type: unspecified Qualified Code(s): R11.2 - Nausea with vomiting, unspecified (2) Hematemesis Qualifiers: Nausea presence: with nausea Qualified Code(s): K92.0 - Hematemesis (4) GERD (gastroesophageal reflux disease) Qualifiers: Esophagitis presence: esophagitis presence not specified Qualified Code(s): K21.9 - Gastro-esophageal reflux disease without esophagitis (5) Esophageal varices Qualifiers: Esophageal varices type: unspecified type Esophageal varices bleeding: without bleeding Qualified Code(s): I85.00 - Esophageal varices without bleeding (6) Insomnia Qualifiers: Insomnia type: unspecified Qualified Code(s): G47.00 - Insomnia, unspecified
[2018-07-24] MEDS ORDERED: GI Cocktail 40 ML EACH PO PRN (19:25)
[2018-07-25] MEDS: *HR* Promethazine 25 MG/ML VIAL IVP PRN ×2 (03:36→12:05)
[2018-07-25] MEDS: OXYCODONE Oral CONC 10 MG/0.5 ML ORAL.SYG SL PRN ×3 (03:36→13:18)
[2018-07-25 05:10] LABS: Hematocrit 41.6 % (37.5-50.1); Hemoglobin 13.9 g/dL (12.9-16.9); Mean Corpuscular HGB Conc 33.4 g/dL (31.6-35.5); Mean Corpuscular Hemoglobin 30.2 pg (28.0-33.3); Mean Corpuscular Volume 90.2 fL (83.0-100.0); Mean Platelet Volume 10.1 fL (9.4-12.4); Platelet Count 217 K/mcL (140-400); Red Blood Count 4.61 M/mcL (4.19-5.50); Red Cell Distribution Width 12.4 % (11.5-14.5)
[2018-07-25 11:29] VITALS: BP 114/75
--- NOTE | 2018-07-25 12:03 | Discharge Summary ---
<Adrián Bonner - Last Filed: 07/25/18 12:14> - NOTES TO OUTPATIENT PROVIDER Notes to Outpatient Provider: Patient presented with intractable nausea and vomiting. This is an acute on chronic issue for him. He was treated with Phenergan and bowel rest. He does follow closely with gastroenterology. He was still having symptoms at time of discharge however he is agreeable that he cannot go home on narcotics. He should follow up with his primary care physician as well as gastroenterology Date of Encounter: 07/25/18 Time of Encounter: 12:00 - Discharge Diagnosis (1) Intractable nausea and vomiting Priority: Primary Status: Acute Qualifiers: Vomiting type: unspecified Qualified Code(s): R11.2 - Nausea with vomiting , unspecified (2) Epigastric abdominal pain Priority: Secondary Status: Acute (3) GERD (gastroesophageal reflux disease) Priority: Secondary Status: Acute Qualifiers: Esophagitis presence: esophagitis presence not specified Qualified Code(s) : K21.9 - Gastro-esophageal reflux disease without esophagitis (4) Esophageal varices Priority: Secondary Status: Chronic Qualifiers: Esophageal varices type: unspecified type Esophageal varices bleeding: without bleeding Qualified Code(s): I85.00 - Esophageal varices without bleeding (5) DVT prophylaxis Priority: Secondary Status: Acute (6) Insomnia Priority: Secondary Status: Chronic Qualifiers: Insomnia type: unspecified Qualified Code(s): G47.00 - Insomnia, unspecified (7) Anxiety Priority: Secondary Status: Chronic Hospital course: Mr. Alexandra is a 32 year old male with past medical history of chronic nausea, vomiting, anxiety, PTSD, mild esophageal varices, GERD presented to emergency department with complaint of intractable nausea and vomiting. He recently underwent esophageal manometry 2 days previous to presentation. He did report 1 episode of hematemesis which has since resolved. He is also unable to take in oral nutrition at that time. Vital signs on presentation significant for heart rate very mildly elevated at 90. Laboratory results were unremarkable. CT scan was obtained in the emergency room and showed no acute abnormalities on chest or esophagus. There was noted to be groundglass infiltrates in the lower lobes possibly related to infectious or inflammatory process. He was admitted to the hospital for further management of intractable nausea and vomiting. During course of hospital stay, patient did gradually improve. He has not yet relieved symptoms however it is noted that he was still having symptoms home on a regular basis. He was given IV Phenergan for symptomatic control as this is likely takes at home. He is also to multiple GI cocktails as well as sublingual oxycodone for his pain control. He states they are minimally effective. He was given a clear liquid diet which she has been partially able to tolerate. Discussion was had with on-call gastroenterology on Thursday at time of admission, they stated that rest of EGD for manometry retrieval outweigh the risk of letting the device pass by itself. GI has been unavailable to consult over the weekend. We did discuss the importance of not discharged on narcotic medications and patient is agreeable as he has had multiple allergies in past to these. He will be instructed to continue his home Phenergan medication for symptom control and to follow-up with gastroenterology as well as his primary care physician. He was instructed to alter his diet for time being of clear liquids and advance as tolerated. At time of discharge, vitals and laboratory results remain at baseline levels. He is able to tolerate some of his diet. He will be discharged home in stable medical condition and all questions were answered. Discharge discussed with: patient, family - Time Spent with Patient Total time spent providing and/or coordinating discharge services: - Discharge Medications Home Medications: LORazepam [Ativan] 1 mg PO TID PRN 11/19/17 [History] Promethazine [Phenergan] 25 mg PO Q6HR PRN 11/19/17 [History] Zaleplon [Sonata] 10 mg PO HS 11/19/17 [History] Pantoprazole Sodium [Protonix] 40 mg PO BID 07/23/18 [History] Prazosin HCl [Minipress] 2 mg PO HS 07/23/18 [History] Allergies/Adverse Reactions: 3 Allergy/AdvReac Type Severity Reaction Status Date / Time ketorolac [From Toradol] Allergy Rash Verified 07/23/18 14:15 Methadone Allergy See Verified 11/19/17 10:58 Comments morphine Allergy See Verified 11/19/17 10:58 Comments ondansetron Allergy Migraine Verified 11/19/17 10:58 [From Zofran (as hydrochloride)] tramadol Allergy See Verified 11/19/17 10:58 Comments NSAIDS (Non-Steroidal AdvReac Nausea Verified 07/23/18 14:15 Anti-Inflamma propofol AdvReac Difficulty Verified 07/23/18 14:15 Breathing Date of admission: 07/23/18 20:14 Primary care physician: [facility] Discharging clinician: Adrián Bonner Anticipated date of discharge: 07/25/18 - Constitutional Vitals: Temp Pulse Resp BP Pulse Ox 98.1 F 74 14 114/75 96 07/25/18 11:28 07/25/18 11:28 07/25/18 11:28 07/25/18 11:28 07/25/18 11:28 General appearance: Present: A&O X 3, no acute distress Exam: Constitutional: Alert, in no acute distress, comfortable with food tray at bedside HEENT: Normocephalic, atraumatic, moist mucus membrane Heart: Normal, regular rate and rhythm, no murmurs Lungs: lungs clear and equal bilaterally Abdomen: Soft, non distended, tender in epigastric region, no rigidity, no rebound tenderness Extremities: No edema, no clubbing; Skin: Skin warm and dry, no lesions, no rashes, no jaundice Psych: answers questions appropriately, appears to have good insight and judgement. Non anxious. Neurological Alert and oriented x 3 - Patient Status Disposition: Home, Self-Care Condition: Fair Functional capacity at discharge: independent ambulation Overall status at discharge: patient is progressing back to baseline - Discharge Instructions Follow Up With: [facility] [Primary Care Provider] - (Unable to schedule follow up appointment due to office being closed. Please call thursday to schedule appointment for 7-10 days from date of discharge. ) Additional Instructions: Please follow up with your PCP and GI within 1 week. Take all medications as prescribed. - Diet and Activity Activity: increase activity as tolerated, return to work once cleared by your PCP/specialist, resume usual activities as tolerated Diet: other (clear liquids and advance as tolerated) <Alana Lezama - Last Filed: 07/25/18 13:11> Date of Encounter: 07/25/18 - Discharge Diagnosis (1) Intractable nausea and vomiting Status: Acute Qualifiers: Vomiting type: unspecified Qualified Code(s): R11.2 - Nausea with vomiting , unspecified (2) Epigastric abdominal pain Status: Acute (3) GERD (gastroesophageal reflux disease) Status: Acute Qualifiers: Esophagitis presence: esophagitis presence not specified Qualified Code(s) : K21.9 - Gastro-esophageal reflux disease without esophagitis (4) Esophageal varices Status: Chronic Qualifiers: Esophageal varices type: unspecified type Esophageal varices bleeding: without bleeding Qualified Code(s): I85.00 - Esophageal varices without bleeding (5) DVT prophylaxis Status: Acute (6) Insomnia Status: Chronic Qualifiers: Insomnia type: unspecified Qualified Code(s): G47.00 - Insomnia, unspecified (7) Anxiety Status: Chronic Hospital course: Mr. Alexandra is a 32 year old male - Time Spent with Patient Total time spent providing and/or coordinating discharge services: Date of admission: 07/23/18 20:14 Primary care physician: PCP [facility] - Constitutional Vitals: Temp Pulse Resp BP Pulse Ox 98.1 F 74 14 114/75 96 07/25/18 11:28 07/25/18 11:28 07/25/18 11:28 07/25/18 11:28 07/25/18 11:28 - Attending Attestation I examined this patient and my medical decision-making was reviewed with the Resident Physician Dr Bonner I agree with the documented findings, disposition and treatment plan as described except to the extent set forth below /addl details below Mr Alexandra came to the ED with intractable epigastric pain and worsened chronic nausea and emesis since placement of a ph monitor rvia egd by Dr Bernstein 07/22 with negative work up in ED and Dr Bernstein contacted by ED. Awake, alert . Did have oral intake of fluids yesterday and this morning without emesis. His pain is present but tolerable and he is comfortable appearing. Discussed dc planning and he is oging to call DC thursday and fu with his pcp and gi there. he has pheneragan and PPi at home to take. He is understanding of GI rec given in ED that will take a couple days for monitor to pass, if that is what is causing discomfort, and that no procedure is advised. gen- alert, awake,appears stated age, comfortable appearing, nad, watching tv eyes- pupils equal round , no conjunctival pallor cv- reg rate and rhythm, normal s1,s2, no murmurs appreciated lungs- ctabl, no wheezing, rhonchi or crackles, normal resp effort on room air abd- soft,+ epigastric pain, no guarding, no rigidity, non distended, + bs neuro- AAOx3 intractable nausea/emesis and epigastric pain, has been chronic with egd placed ph monitor by Dr Bernstein 07/22 and pt self reported worsened symptoms No emesis visualized this admission Pain is present on discharge but tolerable -ED contacted Dr Bernstein and too high risk to remove ph monitor given grade I EV, should pass through system in next couple days -cont to advance diet as tolerated at home, premeal phenergan, cont ppi -no electrolyte abnormalities or signs of dehydration -gi consulted,from ED per verbal report and instruction given, not here over weekend, he will fu with established [facility] gastroenterology epigastric pain -ct chest without any acute abnormality -kub and lipase unremarkable -prn pain control, admits to opioid tolerance -ppi -fu with gi Self reported possible blood in emesis with grade I small EV on egd prior to admission -he has had no emesis to observe this admission, hgb normal no vs instability, wnl coags
== END 2018-07-25 15:29 | disposition home or self-care (01) ==
LOC: EMEROOARM 13:34 → 3BNU 13:34 → SUATTDRO 20:14 → 3BNU 20:29
PROVIDERS: ADMIT Internal Medicine; ATTEND Internal Medicine